=== PATIENT | male | born 1950 | race Caucasian/White ===

== ENCOUNTER 2017-05-21 00:19 | Emergency (ER) | payer MEDICARE, OTHER ==
[2017-05-21 00:38] VITALS: TEMP 98.2
[2017-05-21] MEDS ORDERED: CEPHALEXIN 250 MG/5 ML BOTTLE PO ONE (01:01)
[2017-05-21] MEDS ORDERED: CEPHALEXIN 250 MG/5 ML BOTTLE ONE (01:05)
[2017-05-21 01:30] VITALS: BP 145/77; PULSE 67; RESP 18; O2SAT 99
== END 2017-05-21 01:20 | disposition home or self-care (01) | DRG 603 ==
LOC: ED 00:19
DX: L03.116 Cellulitis of left lower limb (principal)
CPT/HCPCS: 99282; A9270-GY

== ENCOUNTER 2018-03-20 12:32 | Emergency (ER) | payer OTHER, MEDICARE ==
[2018-03-20 12:33] VITALS: O2SAT 99
[2018-03-20 13:08] VITALS: BP 171/85; PULSE 91; RESP 18; TEMP 97.9
[2018-03-20 13:53] LABS: BASOPHILS % (AUTO) 1 % (0-3); EOSINOPHILS % (AUTO) 7 % (0-9); HEMATOCRIT 45 % (39-53); HEMOGLOBIN 14.6 gm/dl (13.5-17.7); LYMPHOCYTES % (AUTO) 18.6 % (10-50); MEAN CORPUSCULAR HEMOGLOBIN 28.8 pg (27.0-32.0); MEAN CORPUSCULAR HGB CONC 32.7 gm/dl (32.0-36.0); MEAN CORPUSCULAR VOLUME 88 fL (80-100); MONOCYTES % (AUTO) 8.6 % (0-12); NEUTROPHILS % (AUTO) 64.1 % (37-80)
== END 2018-03-20 15:03 | disposition home or self-care (01) | DRG 948 ==
LOC: ED 12:32
DX: R60.0 Localized edema (principal)
CPT/HCPCS: 36415; 85025; 85378; 99282

== ENCOUNTER 2018-07-05 10:32 | Emergency (ER) | payer OTHER, MEDICARE ==
[2018-07-05 10:56] VITALS: RESP 20; O2SAT 98
[2018-07-05 11:48] VITALS: BP 148/95; PULSE 79; TEMP 96.6
== END 2018-07-05 12:18 | disposition home or self-care (01) | DRG 603 ==
LOC: ED 10:32
DX: L03.116 Cellulitis of left lower limb (principal)
CPT/HCPCS: 99282